=== PATIENT | female | born 1950 | race Caucasian/White ===

== ENCOUNTER → 2017-03-25 | Outpatient (CLI) | payer MEDICARE ==
[~2017-03-25] MED LIST: ALBU6.7H INH; CETI10CA3 PO; CYAN1000P IM; DULE100A INH; LISI10TA PO; MULTCHW27 PO; NU-I150C PO; PRIL20TA2 PO
[2017-03-25 12:22] LABS: AUTOMATED NEUTROPHIL # 3.5 TH/MM3 (1.8-7.7); BASOPHIL % 0.7 % (0.0-2.0); EOSINOPHIL # 0.1 TH/MM3 (0-0.4); EOSINOPHIL % 1.6 % (0.0-4.0); HEMO FLAGS DIFF FINAL; LYMPH % 27.7 % (9.0-44.0); LYMPHOCYTE # 1.6 TH/MM3 (1.0-4.8); MEAN CELL VOLUME 80.8 FL (80.0-100.0); MEAN CORPUSCULAR HEMOGLOBIN 26.3 PG (27.0-34.0); MEAN CORPUSCULAR HGB CONC 32.5 % (32.0-36.0); MONO % 8.9 % (0.0-8.0); NEUT % 61.1 % (16.0-70.0); PLATELET COUNT 300 TH/MM3 (150-450); RED BLOOD COUNT 4.33 MIL/MM3 (4.00-5.30); RED CELL DISTRIBUTION WIDTH 15.2 % (11.6-17.2); WHITE BLOOD COUNT 5.7 TH/MM3 (4.0-11.0)
[2017-03-25 12:32] LABS: APTT (PATIENT) 26.4 SEC (24.3-30.1); PROTHROMBIN TIME - PATIENT 10.7 SEC (9.8-11.6)
[2017-03-25 13:11] LABS: ANION GAP 8 MEQ/L (5-15); AST (GOT) 21 U/L (15-37); BICARBONATE 21.6 MEQ/L (21.0-32.0); BLOOD UREA NITROGEN 15 MG/DL (7-18); CHLORIDE 108 MEQ/L (98-107); GLOMERULAR FILTRATION RATE 54 ML/MIN (>89); GLUCOSE,FASTING 106 MG/DL (74-99); POTASSIUM 4.6 MEQ/L (3.5-5.1); SODIUM (NA) 138 MEQ/L (136-145)
[2017-03-25 13:12] LABS: ALT (GPT) 17 U/L (10-53)
[2017-03-25 13:14] LABS: ALKALINE PHOSPHATASE 170 U/L (45-117); TOTAL BILIRUBIN ADULT 0.4 MG/DL (0.2-1.0)
--- NOTE | 2017-03-26 12:11 | EKG ---
Date Performed: 03/25/2017 Time Performed: 12:11:28 PTAGE: 67 years EKG: Sinus rhythm RIGHT BUNDLE BRANCH BLOCK ABNORMAL ECG NO PREVIOUS TRACING DOCTOR: Shmuel Wallace Interpretating Date/Time 03/26/2017 12:08:27
== END ==
LOC: CPRE 11:47
PROVIDERS: ATTEND Obstetrics & Gynecology Gynecologic Oncology
DX: Z01.810 Encounter for preprocedural cardiovascular examination (principal); Z01.811 Encounter for preprocedural respiratory examination; Z01.812 Encounter for preprocedural laboratory examination; R87.619 Unspecified abnormal cytological findings in specimens from cervix uteri; I45.10 Unspecified right bundle-branch block
CPT/HCPCS: 36415; 80053; 85025; 85610; 85730; 93005

== ENCOUNTER → 2017-04-01 | Day surgery (SDC) | payer MEDICARE ==
[~2017-04-01] VITALS: Ht 163.8 cm; Wt 125.9 kg
[~2017-04-01] MED LIST changes: +*morphine SULFATE 8 MG/ML PERIprocedure ONLY ONE; +ACETAMINOPHEN 1000 MG/100 ML VIAL IV ONE; +CHLORHEXIDINE GLUCONATE 2 % 1 PACK (2 CLOTHS) TOPICAL PRN; +DEXAMETHASONE SOD PHOS 4 MG/ML VIAL ONE; +DICLOFENAC SODIUM 37.5 MG/ML VIAL IV PUSH ONE; +DO NOT ADM ANY ANTICOAGULANT DRUGS PRN; +FAMOTIDINE 20 MG/2 ML VIAL ONE; +FERRIC SUBSULFATE 8 ML TOP SOLN ONE; +INSULIN HUMAN REGULAR 1,000 UNITS/10 ML VIAL SQ PRN; +KETOROLAC TROMETHAMINE 30 MG/ML (IVP) VIAL IV PUSH PRN; +LACTATED RINGER'S 1000 ML INJ 1,000 ML IV ONE; +LACTATED RINGER'S 1000 ML IV PRN; +METOPROLOL TARTRATE 25 MG TAB PO PRN; +MIDAZOLAM HCL 2 MG/2 ML VIAL ONE; +ONDANSETRON HCL 4 MG/2 ML VIAL IV PUSH ONE; +POVIDONE IODINE 5% (ANTISEPSIS KIT) 4 APPLICATIONS EACH NARE PRN; +PROPOFOL 200 MG/20 ML AMP IV ONE; +SODIUM CHLORID 0.9% 500 ML IV PRN; +ePHEDrine/NS 25 MG/5 ML SYR IV ONE; +oxyCODONE/ACETAMINOPHEN 5 MG/325 MG TAB PO PRN
[2017-04-01 08:56] VITALS: BP 108/62; PULSE 80; RESP 18; TEMP 97.7; O2SAT 96
[2017-04-01 13:57] VITALS: BP 130/70; PULSE 75; RESP 18; TEMP 97.2; O2SAT 97
--- NOTE | 2017-04-01 21:28 | MP ---
cc: ALETHA STALLWORTH MD,NOMI Connors MD DATE OF SURGERY 04/01/17 PREOPERATIVE DIAGNOSIS 1. Atypical glandular Pap smear suspicious for adenocarcinoma. 2. Postmenopausal bleeding. 3. Thickened endometrial stripe. 4. PET scan showing subtle PET avid activity in the uterine fundus bright PET avid activity in the lower uterine segment. 5. Need to clarify endocervical versus endometrial origin. POSTOPERATIVE DIAGNOSIS 1. Atypical glandular Pap smear suspicious for adenocarcinoma. 2. Postmenopausal bleeding. 3. Thickened endometrial stripe. 4. PET scan showing subtle PET avid activity in the uterine fundus bright PET avid activity in the lower uterine segment. 5. Need to clarify endocervical versus endometrial origin. 6. Findings most suggestive of endometrial cancer. PROCEDURE Examination under anesthesia, fractional dilation and curettage. SURGEON Adolph Arnold MD [place] [employer] first aid director ANESTHESIA Laryngeal mask anesthesia ESTIMATED BLOOD LOSS 80 mL HISTORY A 67-year-old female intermittent postmenopausal bleeding. Pap smears obtained showed atypical glandular cells suspicious for adenocarcinoma. She had an ultrasound that showed a 15 mm endometrial stripe. PET CT scan showed no overt evidence of metastatic disease. There was a prominent non PET avid lymph node near the jenn in the mediastinum. There was no overt PET avid retroperitoneal adenopathy in the pelvis or para-aortic region. The uterus was prominent. There was some subtle PET activity in the uterine fundus as well as in the left adnexa and there is very bright focal PET activity in the lower uterine segment. She has been seen and counseled. She is seen again in the preop holding area where these findings are reviewed. Our principal objective is to clarify whether this tumor is a primary cervical cancer versus a primary endometrial cancer as the treatment recommendations may differ. I reviewed the potential steps we may take to clarify this. Questions were answered. She expressed good understanding and agreed to proceed. FINDINGS On exam under anesthesia, there is no appreciably enlarged inguinal lymph nodes. External genitalia without mass or lesions. The cervix grossly appears normal. The cervix is slightly dilated and there is what appears to be tumor passing through the cervical os that is loose disconnected tissue. does not appear to be arising from the endocervix. The uterine cavity sounds to 9 cm. It was slightly retroverted to the right. The uterus itself is prominent suggesting possible leiomyomas at the fundus. There is no overt parametrial thickening. The cervix and uterus have mobility. On endocervical curetting large volume of tissue that appears to be tumor is obtained, although most of it seems to be within the endocervical canal itself and not necessarily derived from the lay of the endocervix. Clinical impression is that it is extruding down from the endometrium. On endometrial curetting, there is a high volume of tumor including all the way to the uterine fundus with these findings suggesting that the source of tumor is endometrial and a large volume of tumor is curetted Monsel's solution is used to render a site at the cervix hemostatic. There was bleeding from the dilation. Otherwise, at the end of the case there was complete hemostasis. There were no remaining foreign objects in the vagina. Preliminary and final counts were correct. She was returned to dorsal supine position and was pending reversal of anesthesia when I left the operating room to precede her to the Post Anesthesia Care Unit. MD SHRUTHI Mcqueen/ /12:27 PM /9:11 PM
== END | disposition home or self-care (01) ==
LOC: HSDC 08:20
PROVIDERS: ATTEND Obstetrics & Gynecology Gynecologic Oncology
DX: C54.1 Malignant neoplasm of endometrium (principal); C79.82 Secondary malignant neoplasm of genital organs; N95.0 Postmenopausal bleeding; I10 Essential (primary) hypertension; K21.9 Gastro-esophageal reflux disease without esophagitis; E66.9 Obesity, unspecified; J45.909 Unspecified asthma, uncomplicated; D64.9 Anemia, unspecified; G47.30 Sleep apnea, unspecified; E78.00 Pure hypercholesterolemia, unspecified; M19.90 Unspecified osteoarthritis, unspecified site; Z96.653 Presence of artificial knee joint, bilateral; Z98.84 Bariatric surgery status; Z88.7 Allergy status to serum and vaccine; Z68.42 Body mass index [BMI] 45.0-49.9, adult; Z99.81 Dependence on supplemental oxygen
CPT/HCPCS: 58120; 86850; 86900; 86901; 88305; 88341; 88342; J0131; J1100; J1130; J2250; J2270; J2405; J3010; J7120